=== PATIENT | female | born 1940 | race Caucasian/White ===

== ENCOUNTER 2017-02-02 19:43 | Emergency (ER) | payer MEDICARE ==
[~2017-02-02] VITALS: Ht 154.9 cm; Wt 54.0 kg
[~2017-02-02 19:43] MED LIST: BENADRYL50 MG ORAL; CRESTOR10 M2 ORAL; IBUPROFEN600 MG ORAL; PREDNISONE20 MG ORAL; SYNTHROID25 MCG ORAL
[2017-02-02 21:07] VITALS: BP 154/86
[2017-02-02] MEDS ORDERED: TYLENOL EXTRA500 MG ORAL (21:17)
[2017-02-02 21:55] VITALS: BP 151/82
--- NOTE | 2017-02-02 22:11 | Emergency Room Report ---
History of Present Illness General Chief Complaint: Upper Extremity Injury Source: Patient Present Illness HPI 76-year-old female presents to ED complaining of right wrist pain and swelling x2 days. States that it may have happened after she rolled on it while sleeping. Patient notes pain to the right wrist. 8/10. Sharp. Worse with flexion and extension. No aggravating or relieving factors. Denies any other injuries. Denies any other associated symptoms Allergies: Coded Allergies: PENICILLIN G (Unverified Allergy, Unknown, 05/31/16) Patient History Past Medical History: none Past Surgical History: none Pertinent Family History: none Social History: Denies: alcohol use, drug use, smoking Now: No Immunizations: UTD Reviewed Nursing Documentation: PMH: Agreed, PSxH: Agreed Review of Systems All Other Systems: negative except mentioned in HPI Physical Exam Vital Signs Date Time Temp Pulse Resp B/P Pulse Ox O2 Delivery O2 Flow Rate FiO2 02/02/17 19:53 98.4 97 16 154/86 99 Room Air Sp02 EP Interpretation: reviewed, normal General Appearance: no apparent distress, alert, GCS 15, non-toxic Head: normocephalic Eyes: bilateral eye PERRL, bilateral eye normal inspection ENT: normal ENT inspection Neck: normal inspection Respiratory: normal inspection Cardiovascular #1: normal inspection Gastrointestinal: normal inspection Rectal: deferred Genitourinary: no CVA tenderness Musculoskeletal: tender - R wrist Neurologic: alert, oriented x3, responsive, motor strength/tone normal, sensory intact, speech normal Psychiatric: normal inspection Skin: normal inspection Lymphatic: normal inspection Procedures Splinting Splinting : Consent: Verbal Pre-Made Type: velcro Splint: wrist Pre-Proc Neuro Vasc Exam: normal Post-Proc Neuro Vasc Exam: normal Patient Tolerated: Well Complications: None Medical Decision Making Diagnostic Impression: Primary Impression: Wrist sprain Qualified Codes: S63.501A - Unspecified sprain of right wrist, initial encounter ER Course Hospital Course 76-year-old F presents to ED complaining of R wrist pain/swelling Differential diagnoses include: Fracture, dislocation, sprain, contusion Clinical course Patient placed on stretcher. After initial history and physical, I ordered Xrays of R wrist Xrays prelim read shows no acute fracture/dislocation. placed in splint Diagnosis - wrist sprain Stable and discharged to home with prescription for tylenol. apply ice, keep elevated. weight bear as tolerated. Followup with PMD. Return to ED if symptoms recur or worsen Other X-Ray Diagnostic Results Other X-Ray Diagnostic Results : X-Ray Ordered: R wrist EP Interpretation: Yes Findings: no fractures, no dislocation, no soft tissue swelling Number of Views: 3 Last Vital Signs Date Time Temp Pulse Resp B/P Pulse Ox O2 Delivery O2 Flow Rate FiO2 02/02/17 21:55 76 18 151/82 97 Room Air 02/02/17 21:07 98.4 Status: improved Disposition: HOME, SELF-CARE Condition: Stable Scripts Acetaminophen* (TYLENOL EXTRA STRENGTH*) 500 Mg Tablet 500 MG ORAL Q8H Y for Prn Headache/Temp > 101, #30 TAB 0 Refills Prov: DAGOBERTO MORTON M.D. 02/02/17 Patient Instructions: Wrist Sprain With [facility] DAGOBERTO MORTON M.D. Feb 02, 2017 22:11
--- NOTE | 2017-02-03 11:10 | Diagnostic Imaging Report ---
Clinical Indication:PAIN Technique: 3 views of the right wrist Comparison: None Findings: There is a small cyst within the scaphoid. No acute fractures. No dislocations. The joint spaces are preserved. Bones are osteoporotic Impression: No acute bony trauma Incidental finding small cyst within the scaphoid Osteoporotic change
== END 2017-02-02 21:57 | disposition home or self-care (01) ==
LOC: EMR 20:52
DX: S63.501A Unspecified sprain of right wrist, initial encounter (principal); X58.XXXA Exposure to other specified factors, initial encounter; Y93.9 Activity, unspecified; Y92.9 Unspecified place or not applicable; Z88.0 Allergy status to penicillin
CPT/HCPCS: 29260; 99283